=== PATIENT | female | born 1980 | race Caucasian/White ===

== ENCOUNTER 2018-05-01 10:52 | Emergency (ER) | payer BC ==
[~2018-05-01] VITALS: Ht 162.6 cm; Wt 73.0 kg
[2018-05-01 11:01] VITALS: BP 104/67
--- NOTE | 2018-05-01 11:06 | NUR ---
PATIENT AMBULATED TO BED 3 AT THIS TIME.
--- NOTE | 2018-05-01 11:19 | NUR ---
PT BIB SELF TO THE ED WITH THE CHIEF C/O VAGINAL BLEEDING FOR 5 HOURS. X1 PAD. BIG CLOT HAS GONE THIS MORNING PER PT. DENIES ANY N/V OR DIARRHEA. DENIES ANY PAIN AT THIS TIME. DENIES ANY OTHER PROBLEM AT THIS TIME. PT IS TAKING WELLBUTRIN, VITAMIN, HYDROXYZINE AND BENADRYL. HAS HX OF ANXIETY. PLACED PT ON MONITOR. VSS. ER AWARE.
--- NOTE | 2018-05-01 11:46 | NUR ---
LAB AT THE BEDSIDE.
[2018-05-01 11:57] LABS: BASOPHILS # (AUTO) 0.1 K/uL (0.00-0.22); BASOPHILS % (AUTO) 0.7 % (0.0-2.0); EOSINOPHILS # (AUTO) 0.1 K/uL (0-0.4); EOSINOPHILS % (AUTO) 1.2 % (0.0-4.0); HEMOGLOBIN 11.9 g/dL (12.0-16.0); LYMPHOCYTES # (AUTO) 1.8 K/uL (2.5-16.5); LYMPHOCYTES % (AUTO) 23.6 % (20.5-51.1); MEAN CORPUSCULAR HEMOGLOBIN 28 pg (27-31); MEAN CORPUSCULAR HGB CONC 34 g/dL (33-37); MEAN CORPUSCULAR VOLUME 83.4 fL (80-94); MONOCYTES # (AUTO) 0.5 K/uL (0.8-1.0); MONOCYTES % (AUTO) 6.2 % (1.7-9.3); NEUTROPHILS # (AUTO) 5.2 K/uL (1.8-7.7); NEUTROPHILS % (AUTO) 68.3 % (42.2-75.2); PLATELET COUNT (AUTO) 300 K/uL (140-450); RED BLOOD CELL COUNT(AUTO) 4.19 MIL/uL (4.20-5.40); RED CELL DISTRIBUTION WIDTH 13.5 % (11.6-13.7); WHITE BLOOD COUNT (AUTO) 7.7 K/uL (4.8-10.8)
[2018-05-01 12:20] LABS: ANION GAP 14.7 (8-16); CARBON DIOXIDE 25.2 mmol/L (21-32); CREATININE 0.6 mg/dL (0.6-1.3); POTASSIUM 3.9 mmol/L (3.5-5.1)
[2018-05-01 12:26] LABS: ALBUMIN 3.3 g/dL (3.4-5.0); TOTAL BILIRUBIN 0.1 mg/dL (0.0-1.0)
--- NOTE | 2018-05-01 12:43 | NUR ---
PT AMB W/O ASST TO [facility]
--- NOTE | 2018-05-01 12:48 | NUR ---
ER MD DR MEHTA AT BEDSIDE FOR 2ND EVAL
[2018-05-01 12:52] VITALS: BP 95/57
== END 2018-05-01 12:54 | disposition home or self-care (01) ==
LOC: MED 10:52
DX: O20.9 Hemorrhage in early pregnancy, unspecified (principal); Z3A.12 12 weeks gestation of pregnancy
CPT/HCPCS: 36415; 76801; 80053; 81002; 81025; 84702; 85025; 86900; 86901; 99284; Q0092